=== PATIENT | female | born 1965 | race Caucasian/White ===

== ENCOUNTER 2019-02-03 06:03 | Day surgery (SDC) | payer OTHER ==
[~2019-02-03 06:03] MED LIST: CEFAZOLIN 1 GM/50 ML (PMX) 50 ML IVPB
[2019-02-03] MEDS ORDERED: POVIDONE IODINE 10% 28.4 GM OINT (07:19)
[2019-02-03] MEDS ORDERED: EPHEDrine 25 MG/5 ML SYG (07:37)
[2019-02-03] MEDS ORDERED: LIDOCAINE 2% (SDV) 5 ML INJ (07:37)
[2019-02-03] MEDS ORDERED: PHENYLephrine (100 MCG/ML) 10ML SYG (07:37)
[2019-02-03] MEDS ORDERED: MIDAZOLAM 1 MG/ML 2 ML INJ (07:37)
[2019-02-03] MEDS ORDERED: GLYCOPYRROLATE 0.4 MG INJ (07:37)
[2019-02-03] MEDS ORDERED: CEFAZOLIN 1 GM INJ (07:44)
[2019-02-03] MEDS: BUPIVACAINE 0.5% (SDV) 30 ML INJ (07:45)
[2019-02-03] MEDS ORDERED: FENTAnyl 50 MCG/ML VIAL (07:47)
[2019-02-03] MEDS ORDERED: ONDANSETRON 4 MG INJ (07:47)
[2019-02-03] MEDS ORDERED: PROPOFOL 40 ML (08:01)
[2019-02-03] MEDS: DEXAMETHASONE 4 MG/ML 1 ML INJ (08:05)
[2019-02-03] MEDS: LIDOCAINE 1% (MPF) 30 ML INJ (08:05)
[2019-02-03] MEDS ORDERED: FENTAnyl 50 MCG/ML VIAL IV (08:30)
[2019-02-03] MEDS ORDERED: HYDROmorphONE 1 MG/5 ML IV SYRINGE IV ×3 (08:30)
[2019-02-03] MEDS ORDERED: ONDANSETRON 4 MG INJ IV (08:30)
[2019-02-03] MEDS ORDERED: MEPERIDINE 25 MG INJ IV (08:30)
[2019-02-03] MEDS ORDERED: PROCHLORPERAZINE 10 MG INJ IV (08:30)
[2019-02-03] MEDS ORDERED: DIPHENHYDRAMINE 50 MG INJ IV (08:30)
[2019-02-03] MEDS: OXYCODONE/ACETAMINOPHEN (5/325) TAB PO (09:23)
== END 2019-02-03 10:00 | disposition home or self-care (01) ==
LOC: SDS 06:03
DX: M20.41 Other hammer toe(s) (acquired), right foot (principal)
CPT/HCPCS: 28285; 88304; 88311